=== PATIENT | female | born 1970 | race Caucasian/White ===

== ENCOUNTER → 2021-06-24 10:41 | Outpatient (CLI) | payer BC, SELFPAY ==
--- NOTE | ~2021-06-24 | MR_ITS ---
EXAMINATION: MR brain/brain stem wo/w con DATE: 06/24/2021 12:22 INDICATION: Multiple sclerosis. TECHNIQUE: Magnetic resonance imaging (MRI) of the brain and brainstem was performed without and with 16 mL MultiHance intravenous contrast. Sequences included sagittal and axial T1-weighted FLAIR, axia l T1-weighted FSE, axial diffusion-weighted FS EPI, sagittal T2-weighted FLAIR, axial T2*-weighted GR E, axial T2-weighted FLAIR Propeller, and axial T2-weighted Propeller. Postcontrast sequences include d axial, coronal, and sagittal T1-weighted FSE. Apparent diffusion coefficient (ADC) maps were create d. COMPARISON: None. FINDINGS: There are 2 foci of increased T2-weighted signal intensity in the cerebral white matter, wh ich is within normal limits for the patient's age. There is a 7 mm enhancing extra-axial mass with du ral tails anterior to left frontal lobe, consistent with a meningioma. There is no intracranial hemor rhage or acute infarction. The ventricles are normal in size. The orbits are normal. There is mild mu cosal thickening in the ethmoid sinuses. The mastoid air cells are normal. IMPRESSION: 1. 7 mm meningioma anterior to left frontal lobe. Reviewed, dictated and finalized at location B.
[2021-06-24 11:27] LABS: Estimated Glomerular Filt Rate > 60
== END ==
PROVIDERS: PCP Emergency Medicine; Visit Provider Psychiatry & Neurology Neurology
DX: G35 Multiple sclerosis (principal)
CPT/HCPCS: 70553; A9577

== ENCOUNTER 2024-04-07 15:43 | Outpatient (CLI) | payer BC, SELFPAY ==
--- NOTE | ~2024-04-07 | MR_ITS ---
EXAMINATION: MR brain/brain stem wo/w con DATE: 04/07/2024 16:36 INDICATION: Multiple sclerosis. TECHNIQUE: Magnetic resonance imaging (MRI) of the brain and brainstem was performed without and with 17 L MultiHance intravenous contrast. COMPARISON: Brain MRI 06/24/2021 FINDINGS: There are 3 foci of increased T2-weighted signal intensity in the cerebral white matter, wh ich is normal for the patient's age. Anterior to the left frontal lobe, there is a 14 mm enhancing ex tra-axial mass with dural tail, consistent with a meningioma. There is no acute ischemic infarct or i ntracranial hemorrhage. The ventricles are normal in size. The orbits are normal. The paranasal sinus es are clear. The mastoid air cells are normal. IMPRESSION: 1. 14 mm meningioma anterior to left frontal lobe, increased from 8 mm on 06/24/2021 Reviewed, dictated and finalized at location A. IMPRESSION: 1. 14 mm meningioma anterior to left frontal lobe, increased from 8 mm on 2020
== END 2024-04-07 15:44 ==
LOC: MICIMG 15:44
PROVIDERS: PCP Psychiatry & Neurology Neurology; Visit Provider Psychiatry & Neurology Neurology
DX: G35 Multiple sclerosis (principal); D32.0 Benign neoplasm of cerebral meninges
CPT/HCPCS: 70553; A9577

== ENCOUNTER 2025-02-01 14:52 | Outpatient (CLI) | payer BC, SELFPAY ==
--- NOTE | ~2025-02-01 | MR_ITS ---
EXAMINATION: MR knee LT wo con DATE: 02/01/2025 15:24 INDICATION: Left knee pain TECHNIQUE: Magnetic resonance imaging (MRI) of the left knee was performed without intravenous contra st. Sequences included coronal PD-weighted FSE, coronal PD-weighted FS FSE, sagittal T2-weighted FSE , sagittal PD-weighted FS FSE and axial PD weighted fat saturated FSE. COMPARISON: None. FINDINGS: Medial compartment: Complex tear of the posterior horn of the medial meniscus with small longitudinal vertical tear in th e peripheral third of the posterior horn extending short distance medially from a full-thickness radi al tear near the posterior root. There is extensive deep chondral ulceration with mild underlying sub articular edema-like signal change along the anterior to central weightbearing medial femoral condyle and central, anterior and medial aspect of the medial tibial plateau. Lateral compartment: Lateral meniscus is normal. Partial thickness cartilage loss involving up to 50% cartilage thickness along the lateral aspect of the central to posterior weightbearing lateral femoral condyle. Patellofemoral compartment: Deep chondral fissuring at the medial patellar facet. There is partial-thickness chondral ulceration and deep fissuring at the inferior aspect of the lateral patellar facet where there is a shallow conc avity with central bone fragment, unclear whether attest are unattached which suggests either sequela of old fracture or chronic osteochondral lesion potentially loose fragment in situ. There is additio nal mild subarticular edema-like signal change. Shallow ulceration with chondral surface regularity a long the inferior aspect of the trochlear groove and medial trochlea. Ligaments and tendons: Anterior and posterior cruciate ligaments are normal. The medial collateral ligament and fibular ya ateral ligament complex are normal. Mild distal quadriceps tendinopathy. Patellar tendon is normal. T he visualized medial and lateral hamstring tendons as well as the iliotibial band are normal. Fluid: Moderate-sized left knee joint effusion at the suprapatellar pouch. No loose osteochondral bodies rafael ntified. Osseous/other: Small marginal osteophytes in all 3 compartments. Aside from the degenerative subarticular edema-like signal changes there is normal marrow signal throughout with no fracture or pathologic marrow replac ing process. No fracture or pathologic marrow replacing process. IMPRESSION: 1. Complex tear including full thickness radial component near the posterior root of the medial menis cus. 2. Tricompartmental osteoarthritis, severe with extensive high-grade chondral malacia in the medial c ompartment and mild in the lateral and patellofemoral compartments. 3. Subtle cortical and cavity with small potentially loose bone fragment. Shallow concavity along the inferomedial aspect of the lateral patellar facet with associated high-grade chondromalacia which co uld represent sequela of old trauma versus chronic osteochondral lesion potentially with loose fragme nt in situ. 4. Moderate-sized knee joint effusion. Reviewed, dictated and finalized at location B. IMPRESSION: 1. Complex tear including full thickness radial component near the posterior ro ot of the medial meniscus. 2. Tricompartmental osteoarthritis, severe with extensive high-grade chondral m alacia in the medial compartment and mild in the lateral and patellofemoral com partments. 3. Subtle cortical and cavity with small potentially loose bone fragment. Shall ow concavity along the inferomedial aspect of the lateral patellar facet with a ssociated high-grade chondromalacia which could represent sequela of old trauma versus chronic osteochondral lesion potentially with loose fragment in situ. 4. Moderate-sized knee joint effusion.
== END 2025-02-01 14:53 | disposition home or self-care (01) ==
LOC: MICIMG 14:53
PROVIDERS: PCP Family Medicine; Visit Provider Nurse Practitioner Family
DX: M17.12 Unilateral primary osteoarthritis, left knee (principal); M25.462 Effusion, left knee; S83.232A Complex tear of medial meniscus, current injury, left knee, initial encounter; X58.XXXA Exposure to other specified factors, initial encounter
CPT/HCPCS: 73721